=== PATIENT | male | born 1960 | race Caucasian/White ===

== ENCOUNTER 2017-09-29 19:48 | Emergency (ER) | payer OTHER ==
[~2017-09-29] VITALS: Ht 175.3 cm; Wt 65.8 kg
[2017-09-29] MEDS ORDERED: CRESTOR10 MG (20:12)
== END 2017-09-29 21:29 | disposition home or self-care (01) ==
LOC: ER 19:48
DX: K11.20 Sialoadenitis, unspecified (principal)